=== PATIENT | female | born 1950 | race Caucasian/White ===

== ENCOUNTER 2020-07-08 12:29 | Emergency (ER) | payer MEDICARE, OTHER ==
--- NOTE | 2020-07-08 13:01 | ED Physician Documentation ---
PD HPI UPPER EXT INJURY - Stated complaint Stated Complaint: RT WRIST INJ - Chief complaint Chief Complaint: Ext Problem - History obtained from History obtained from: Patient - History of Present Illness Type of injury: Fall Where injury occurred: Other (golf course) Timing - details: Abrupt onset Improved by: Rest, Ice, Immobilization Worsened by: Moving, Palpating Associated symptoms: Swelling. No: Weakness, Numbness Contributing factors: No: Anticoagulated, Prior ortho surgery Similar symptoms before: Has not had sx before - Additonal information Additional information: 69-year-old right-handed female comes to the emergency department with pain and swelling at the right wrist. She reports a FOOSH injury this afternoon when [place]. She has obvious swelling and mild deformity on the dorsum of the wrist just proximal to the radial head. No history of previous injury. Patient denies any pertinent past medical history. She denies hypertension diabetes high cholesterol. She takes no prescribed medications. She denies any other associated injury, neck pain back pain headache or loss of consciousness Review of Systems Constitutional: denies: Fever, Chills Eyes: denies: Loss of vision, Decreased vision Ears: denies: Loss of hearing, Ear pain Nose: denies: Rhinorrhea / runny nose, Foreign Body Throat: denies: Dental pain / toothache, Oral lesions / sores Cardiac: denies: Chest pain / pressure, Palpitations Respiratory: denies: Dyspnea, Cough GI: denies: Abdominal Pain, Abdominal Swelling, Nausea : denies: Dysuria Skin: denies: Rash, Lesions Musculoskeletal: reports: Extremity pain, Joint pain, Extremity swelling, Joint swelling. denies: Neck pain, Back pain Neurologic: denies: Generalized weakness, Focal weakness, Numbness, Syncope, Seizure, Headache, Head injury, LOC PD PAST MEDICAL HISTORY - Present Medications Home Medications: Ambulatory Orders Medication Instructions Recorded Confirmed Hydrocodone/Acetaminophen 1 each PO BID PRN #15 tablet 07/08/20 [Hydrocodone-Acetamin 5-325 mg] Ibuprofen [Motrin] 600 mg PO Q6H PRN #30 tab 07/08/20 - Allergies Allergies/Adverse Reactions: Allergies Allergy/AdvReac Type Severity Reaction Status Date / Time No Known Drug Allergies Allergy Verified 07/08/20 12:38 PD ED PE NORMAL - General General: Alert and oriented X 3, No acute distress - HEENT HEENT: PERRL, EOMI - Neck Neck: No bony TTP, No adenopathy - Cardiac Cardiac: RRR, No murmur - Respiratory Respiratory: No respiratory distress - Derm Derm: Normal color, Warm and dry - Extremities Extremities: No: No tenderness to palpate, Normal ROM s pain (Pain, swelling, ecchymosis distal right radius and ulna. Distal 2+ radial pulse. Secondary to pain patient is unable to flex or extend the wrist in any plane. 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 There is slight angulation. No definitive extension to the articular surface. Mildly displaced ulnar styloid fracture is present) PD MEDICAL DECISION MAKING - ED course Complexity details: reviewed results, d/w patient ED course: 69-year-old female presents to the emergency department with right wrist pain and mild deformity following a FOOSH this afternoon while playing golf when she slipped on wet grass. The x-ray shows a mildly angulated comminuted distal right radial and an associated ulnar styloid fracture. She was placed in a sugar tong splint and provided with information to follow-up with orthopedics. The angulation was minimal therefore no reduction was completed in the emergency department. She was prescribed some [place] for severe pain and ibuprofen to be taken as needed. Routine splint care and emergent return precautions were discu ssed Departure - Departure Disposition: 01 Home, Self Care Clinical Impression: Traumatic closed displaced fracture of distal end of left radius and ulna Condition: Stable Record reviewed to determine appropriate education?: Yes Instructions: ED Fx Upper Ext Follow-Up: [facility] [Provider Group] - Within 1 week Prescriptions: Hydrocodone/Acetaminophen [Hydrocodone-Acetamin 5-325 mg] 1 each PO BID PRN #15 tablet PRN Reason: Pain Ibuprofen [Motrin] 600 mg PO Q6H PRN #30 tab PRN Reason: Pain Comments: Unfortunately the x-ray does show that you have a comminuted fracture of your distal right radius as well as an ulnar styloid fracture. We have placed you in a temporary splint today. The splint should be kept clean and dry. I would like you to schedule a follow-up appointment within 1 week with the orthopedic doctors. At that time in office they may choose to slightly reduce the fracture but this may not best sincerely be necessary in the long-term. I have prescribed a limited amount of hydrocodone for pain control. I advised that you follow-up with your primary care doctor. I have also prescribed some ibuprofen to be used for pain. If you find that the splint is too tight, you have numbness or tingling of your fingers, or develop any fevers please return to any emergency department for reevaluation
--- NOTE | 2020-07-08 13:07 | XRAY Report ---
PROCEDURE: Wrist 3 View RT INDICATIONS: trauma to wrist TECHNIQUE: 3 views of the wrist were acquired. COMPARISON: None FINDINGS: Bones: Comminuted distal radial fracture with impaction is present. There is slight angulation. No de finitive extension to the articular surface. Mildly displaced ulna styloid fracture is present. No merida spicious bony lesions. Scaphoid view: Not obtained. Soft tissues: No suspicious soft tissue calcifications. IMPRESSION: Comminuted and impacted distal radial fracture. Ulna styloid fracture. Reviewed by: Brionna Ham MD on 07/08/2020 1:05 PM PDT Approved by: Brionna Ham MD on 07/08/2020 1:05 PM PDT Station ID: [id number]
[2020-07-08] MEDS: HYDROmorphone 1 MG/ML CARPUJECT IM STA (13:11)
[2020-07-08 13:47] VITALS: BP 115/65
== END 2020-07-08 13:47 | disposition home or self-care (01) ==
LOC: ED 12:29
DX: S52.501A Unspecified fracture of the lower end of right radius, initial encounter for closed fracture (principal); S52.611A Displaced fracture of right ulna styloid process, initial encounter for closed fracture; W01.0XXA Fall on same level from slipping, tripping and stumbling without subsequent striking against object, initial encounter; Y93.53 Activity, golf; Y92.39 Other specified sports and athletic area as the place of occurrence of the external cause
CPT/HCPCS: 73110; 96372; 99283; 99284; J1170